=== PATIENT | female | born 1940 | race Caucasian/White ===

== ENCOUNTER → 2021-10-22 | Outpatient (CLI) | payer MEDICARE ==
[~2021-10-22] MED LIST: LEXA1TAB PO; LOTR10CA PO; PANT40TA29 PO; SIMV20TA22 PO; SUCR1TAB56 PO
== END ==
LOC: M LABSMTC 10:30
PROVIDERS: ATTEND Anesthesiology
DX: Z01.812 Encounter for preprocedural laboratory examination (principal); Z20.822 Contact with and (suspected) exposure to COVID-19

== ENCOUNTER 2021-10-26 10:58 | Day surgery (SDC) | payer MEDICARE ==
[~2021-10-26] VITALS: Ht 10.2 cm; Wt 74.3 kg
[~2021-10-26 10:58] MED LIST changes: +NS 1,000 ML IV ONE
[2021-10-26] MEDS ORDERED: fentaNYL 100 MCG/2 ML INJECTION As Ordered ONE (11:06)
[2021-10-26] MEDS ORDERED: LIDOCAINE 2% 100MG/5ML SDV (FOR ANES.) As Ordered ONE (11:32)
[2021-10-26] MEDS ORDERED: propofoL 200 MG/20 ML VIAL As Ordered ONE (12:25)
[2021-10-26 12:50] VITALS: BP 196/95
== END 2021-10-26 12:57 | disposition home or self-care (01) ==
LOC: M OPP 10:58
PROVIDERS: ATTEND Surgery
DX: D12.2 Benign neoplasm of ascending colon (principal); K63.5 Polyp of colon; Z85.038 Personal history of other malignant neoplasm of large intestine; Z08 Encounter for follow-up examination after completed treatment for malignant neoplasm; K31.89 Other diseases of stomach and duodenum; K44.9 Diaphragmatic hernia without obstruction or gangrene; Z79.02 Long term (current) use of antithrombotics/antiplatelets; Z79.82 Long term (current) use of aspirin; Z79.899 Other long term (current) drug therapy; I10 Essential (primary) hypertension; E78.00 Pure hypercholesterolemia, unspecified; Z92.21 Personal history of antineoplastic chemotherapy; Z90.49 Acquired absence of other specified parts of digestive tract
CPT/HCPCS: 43235; 45384; 45385; 88305; J3010

== ENCOUNTER → 2023-03-28 | Outpatient (CLI) | payer MEDICARE ==
[~2023-03-28] MED LIST changes: +E-Z-GAS II EFFERVESCENT PACKET (SODIUM BICARB./CITRIC ACID/SIMETHICONE) As Ordered ONE; +E-Z-HD 98% w/w 340GM SUSP BTL As Ordered ONE; +E-Z-PAQUE 96% w/w SUSP 176GM BTL As Ordered ONE; -NS 1,000 ML IV ONE
== END ==
LOC: M RAD 08:40
PROVIDERS: ATTEND Surgery
DX: K21.00 Gastro-esophageal reflux disease with esophagitis, without bleeding (principal); R11.0 Nausea; K44.9 Diaphragmatic hernia without obstruction or gangrene; K31.7 Polyp of stomach and duodenum; K57.10 Diverticulosis of small intestine without perforation or abscess without bleeding

== ENCOUNTER → 2024-03-12 | Outpatient (CLI) | payer MEDICARE, MEDICAID ==
[~2024-03-12] MED LIST changes: -E-Z-GAS II EFFERVESCENT PACKET (SODIUM BICARB./CITRIC ACID/SIMETHICONE) As Ordered ONE; -E-Z-HD 98% w/w 340GM SUSP BTL As Ordered ONE; -E-Z-PAQUE 96% w/w SUSP 176GM BTL As Ordered ONE
[2024-03-12 10:47] LABS: HEMATOCRIT 41.5 % (36.0-47.0); MEAN CORPUSCULAR HEMOGLOBIN 31.5 pg (27.0-33.0); MEAN CORPUSCULAR HGB CONC 33.7 g/dl (32.0-36.5); MEAN CORPUSCULAR VOLUME 93.3 fl (80.0-96.0); PLATELET COUNT, AUTOMATED 211 10^3/uL (150-450); RED BLOOD COUNT 4.45 10^6/uL (4.00-5.40); WHITE BLOOD COUNT 6.7 10^3/uL (4.0-10.0)
[2024-03-12 11:12] LABS: ALBUMIN 4.1 G/DL (3.2-5.2); ALKALINE PHOSPHATASE 81 U/L (35-104); ALT/SGPT 30 U/L (7.0-40); AST/SGOT 24 U/L (<34); BILIRUBIN,TOTAL 0.7 MG/DL (0.3-1.2); BLOOD UREA NITROGEN 19 MG/DL (9-23); CALCIUM LEVEL 9.3 MG/DL (8.3-10.6); CARBON DIOXIDE LEVEL 29 MMOL/L (20-31); CHLORIDE LEVEL 106 MMOL/L (98-107); CREATININE FOR GFR 0.77 MG/DL (0.55-1.30); GLOMERULAR FILTRATION RATE > 60.0 (>32); GLUCOSE, FASTING 120 MG/DL (74-106); POTASSIUM SERUM 4.3 MMOL/L (3.5-5.1); SODIUM LEVEL 143 MMOL/L (136-145); TOTAL PROTEIN 6.6 G/DL (5.7-8.2)
[2024-03-12 11:15] LABS: TOTAL 25(OH) VITAMIN D 38.1 NG/ML (20.0-100.0)
[2024-03-12 11:50] LABS: HEMOGLOBIN A1c 5.5 % (4.0-6.0)
== END ==
LOC: M LAB 09:56
PROVIDERS: ATTEND Physician Assistant
DX: R73.03 Prediabetes (principal); I10 Essential (primary) hypertension; E83.42 Hypomagnesemia; Z79.899 Other long term (current) drug therapy

== ENCOUNTER → 2024-11-25 | Outpatient (REF) | payer MEDICARE, MEDICAID ==
[2024-11-25 18:38] LABS: PLATELET COUNT, AUTOMATED 205 10^3/uL (150-450)
[2024-11-25 19:00] LABS: ALT/SGPT 27.0 U/L (7.0-40); AST/SGOT 35.0 U/L (<34); CALCIUM LEVEL 9.7 MG/DL (8.3-10.6); CARBON DIOXIDE LEVEL 29.0 MMOL/L (20-31); CHLORIDE LEVEL 105.0 MMOL/L (98-107); CHOLESTEROL LEVEL 146.0 MG/DL (<200); CHOLESTEROL RISK RATIO 3.11 (<5); CREATININE FOR GFR 0.94 MG/DL (0.55-1.30); GLOMERULAR FILTRATION RATE 59.5 (>32); LDL CHOLESTEROL 71.9 MG/DL (<100); NON-HDL-C 99.1 MG/DL; POTASSIUM SERUM 5.1 MMOL/L (3.5-5.1); SODIUM LEVEL 144.0 MMOL/L (136-145); TRIGLYCERIDES LEVEL 136.0 MG/DL (<150)
[2024-11-25 19:13] LABS: ESTIMATED AVERAGE GLUCOSE 120.0 MG/DL (60-110)
== END ==
LOC: M LAB REF 17:20
PROVIDERS: ATTEND Student in an Organized Health Care Education/Training Program
DX: R73.03 Prediabetes (principal)

== ENCOUNTER → 2024-12-11 | Outpatient (CLI) | payer MEDICARE, MEDICAID | LOC: M WHC 10:00 | PROVIDERS: ATTEND Physician Assistant | DX: Z13.820 Encounter for screening for osteoporosis (principal); M85.89 Other specified disorders of bone density and structure, multiple sites ==

== ENCOUNTER 2025-02-08 06:33 | Day surgery (SDC) | payer MEDICARE, MEDICAID ==
[~2025-02-08] VITALS: Ht 160 cm; Wt 66.6 kg
[~2025-02-08 06:33] MED LIST changes: +FAMO1TAB11 PO; +LEVOTAB10 PO; +METF500T13 PO
[2025-02-08] MEDS ORDERED: LIDOCAINE 2% 100 MG/5 ML SDV (FOR ANES.) As Ordered ONE (07:25)
[2025-02-08 08:02] VITALS: TEMP 97.7
[2025-02-08 08:31] VITALS: BP 145/70; O2SAT 98
== END 2025-02-08 08:37 | disposition home or self-care (01) ==
LOC: M OPP 06:33
PROVIDERS: ATTEND Surgery
DX: Z85.038 Personal history of other malignant neoplasm of large intestine (principal); Z98.0 Intestinal bypass and anastomosis status; Z79.899 Other long term (current) drug therapy